=== PATIENT | female | born 1940 | race Caucasian/White ===

== ENCOUNTER 2018-05-11 12:21 | Inpatient (IN) | payer MEDICARE ==
--- NOTE | 2018-05-11 14:37 | ED ---
Shortness of Breath - HPI Summary HPI Summary: This patient is a 78 year old F presenting to [facility] with a chief complaint of sudden SOB that began this morning. Pt states she was playing tennis this morning as she does most when she had to stop because she would breath. Took pulse at this time and it was normal, she then was getting ready to go home and as she was walking out she became SOB. This episode was followed by another episode as she walked into her house. She correlates the SOB to walking. The patient rates the pain 2/10 in severity. Patient reports romero, general malaise, she also reports pain with inspiration. Patient denies CP, dizziness, cough, cold sx, and calf pain. Drove to see her daughter last weekend [address] - History of Current Complaint Chief Complaint: EDShortnessOfBreath Time Seen by Provider: 05/11/18 14:21 Hx Obtained From: Patient Onset/Duration: Still Present Timing: Constant Current Severity: Mild Dyspnea At: Exertion Alleviating Factors: Other - rest Associated Signs & Symptoms: Negative - romero, general malaise, she also reports pain with inspiration. Patient denies CP, dizziness, cough, cold sx, and calf pain. - Allergy/Home Medications Allergies/Adverse Reactions: Allergies Allergy/AdvReac Type Severity Reaction Status Date / Time bacitracin Allergy Rash Verified 05/11/18 12:28 [From Neosporin ([id number])] neomycin Allergy Rash Verified 05/11/18 12:28 [From Neosporin ([id number])] polymyxin B Allergy Rash Verified 05/11/18 12:28 [From Neosporin ([id number])] Home Medications: Home Medications NK [No Home Medications Reported] 05/11/18 [History Confirmed 05/11/18] PMH/Surg Hx/FS Hx/Imm Hx Endocrine/Hematology History: Denies: Hx Diabetes Cardiovascular History: Denies: Hx Hypertension, Hx Pacemaker/ICD History: Denies: Hx Renal Disease Sensory History: Denies: Hx Hearing Aid, Hx Hearing Problem Psychiatric History: Denies: Hx Panic Disorder, Hx of Violent Episodes Against Others - Surgical History Surgery Procedure, Year, and Place: hysterectomy - PARTIAL Infectious Disease History: No Infectious Disease History: Denies: Traveled Outside the [place] in Last 30 Days - Family History Known Family History: Negative: Diabetes, Respiratory Disease, Seizure Disorder - Social History Alcohol Use: Rare Hx Substance Use: No Substance Use Type: Reports: None Hx Tobacco Use: No Smoking Status (MU): Never Smoked Tobacco Review of Systems Constitutional: Negative - cold sx Positive: Other - general malaise Negative: Chest Pain Positive: Shortness Of Breath, Other - reports pain with inspiration. . Negative: Cough Musculoskeletal: Negative - calf pain Neurological: Negative - dizziness Positive: Headache All Other Systems Reviewed And Are Negative: Yes Physical Exam - Summary Physical Exam Summary: VITAL SIGNS: Reviewed. GENERAL: Patient is a well-developed and nourished female who is lying comfortable in the stretcher. Patient is not in any acute respiratory distress. HEAD AND FACE: No signs of trauma. No ecchymosis, hematomas or skull depressions. No sinus tenderness. EYES: PERRLA, EOMI x 2, No injected conjunctiva, no nystagmus. EARS: Hearing grossly intact. Ear canals and tympanic membranes are within normal limits. MOUTH: Oropharynx within normal limits. NECK: Supple, trachea is midline, no adenopathy, no JVD, no carotid bruit, no c- spine tenderness, neck with full ROM. CHEST: Symmetric, no tenderness at palpation LUNGS: Clear to auscultation bilaterally. No wheezing or crackles. CVS: Regular rate and rhythm, S1 and S2 present, no murmurs or gallops appreciated. ABDOMEN: Soft, non-tender. No signs of distention. No rebound no guarding, and no masses palpated. Bowel sounds are normal. EXTREMITIES: FROM in all major joints, no edema, no cyanosis or clubbing. NEURO: Alert and oriented x 3. No acute neurological deficits. Speech is normal and follows commands. SKIN: Dry and warm Triage Information Reviewed: Yes Vital Signs On Initial Exam: Initial Vitals Temp Pulse Resp BP Pulse Ox 97 F 98 20 156/109 94 05/11/18 12:21 05/11/18 12:21 05/11/18 12:21 05/11/18 12:21 05/11/18 12:21 Vital Signs Reviewed: Yes Diagnostics - Vital Signs Vital Signs Temp Pulse Resp BP Pulse Ox 05/11/18 12:21 97 F 98 20 156/109 94 - Laboratory Result Diagrams: 05/11/18 18:16 05/11/18 14:37 Lab Statement: Any lab studies that have been ordered have been reviewed, and results considered in the medical decision making process. - Radiology CXR Radiology Interpretation Completed By: Radiologist Summary of Radiographic Findings: No radiographic evidence of acute cardiopulmonary disease. ED physician has reviewed this radiology report. - EKG 1452 Cardiac Rate: NL EKG Rhythm: Sinus Rhythm - at 75 BPM Summary of EKG Findings: NO STEMI Course/Dx - Course Assessment/Plan: This patient is a 78 year old F presenting to [facility] with a chief complaint of sudden SOB that began this morning. Pt states she was playing tennis this morning as she does most when she had to stop because she would breath. Took pulse at this time and it was normal, she then was getting ready to go home and as she was walking out she became SOB. This episode was followed by another episode as she walked into her house. She correlates the SOB to walking. The patient rates the pain 2/10 in severity. Patient reports romero, general malaise, she also reports pain with inspiration. Patient denies CP, dizziness, cough, cold sx, and calf pain. Drove to see her daughter last weekend [address] Blood work without any significant abnormality except for d-dimer no 1050. Therefore I decided to order an chest CTA. CTA IMPRESSION: 1. There is widespread pulmonary emboli involving all 5 lobar branches and extending to the distal portion of the left mainstem pulmonary artery. 2. Low-attenuation 8 mm focus in the right lobe of the thyroid that can be further. characterized on a nonemergent basis with thyroid ultrasound. The patient was started with heparin drip. I discussed the case with Dr. pichardo from the hospital services who accepted the patient for admission. The patient is hemodynamically stable alert and oriented 3. - Diagnoses Differential Diagnosis/HQI/PQRI: Positive: CHF, Chest Wall Pain, COPD Exacerbation, DE, Pneumonia, Pulmonary Embolism, Pulmonary Edema Provider Diagnoses: Pulmonary embolism - Physician Notifications Discussed Care of Patient With: Gilma Bullard Time Discussed With Above Provider: 17:39 Instructed by Provider To: Admit As Inpatient - Critical Care Time Critical Care Time: 75-104 min Discharge - Sign-Out/Discharge Documenting (check all that apply): Patient Departure - dmitted - Discharge Plan Condition: Fair Disposition: ADMITTED TO [facility] Referrals: Eduardo Caballero MD [Primary Care Provider] - - Billing Disposition and Condition Condition: FAIR Disposition: Admitted to [facility] - Attestation Statements Document Initiated by Franny: Yes Documenting Scribe: Manjit Eugene Provider For Whom Franny is Documenting (Include Credential): Eran Ramos MD Scribe Attestation: I, Manjit Eugene , scribed for Eran Ramos MD on 05/11/18 at 1832. Scribe Documentation Reviewed: Yes Provider Attestation: The documentation as recorded by the Manjit calvillo accurately reflects the service I personally performed and the decisions made by me, Eran Ramos MD
[2018-05-11 14:55] LABS: ABS Basophils 0.1 10^3/ul (0-0.2); ABS Eosinophils 0.1 10^3/ul (0-0.6); ABS Monocytes 0.5 10^3/ul (0-0.8); ABS Nucleated RBC 0 10^3/ul; Eosinophil % 0.7 % (0-6); Hematocrit 41 % (35-47); Hemoglobin 14.1 g/dl (12.0-16.0); Lymphocyte % 9.2 % (25-47); Mean Corpuscular HGB Conc 35 g/dl (31-36); Mean Corpuscular Hemoglobin 30 pg (27-31); Mean Corpuscular Volume 87 fL (80-97); Mean Platelet Volume 7.4 fL (7.4-10.4); Nucleated Red Blood Cells % 0; Platelet Count 202 10^3/ul (150-450); Red Blood Count 4.71 10^6/ul (4.00-5.40); Red Cell Distribution Width 13 % (10.5-15); White Blood Count 10.7 10^3/ul (3.5-10.8)
[2018-05-11 15:24] LABS: INR 0.93 (0.77-1.02)
[2018-05-11 15:49] LABS: EGFR Non-African American 81.4 (>60)
[2018-05-11 15:53] LABS: Urine Appearance Clear; Urine Blood 1+ (Negative); Urine Color Straw; Urine Ketones Negative (Negative); Urine Protein Negative (Negative); Urine Red Blood Cell Trace(0-2/hpf) (Absent); Urine Specific Gravity 1.002 (1.010-1.030); Urine Urobilinogen Negative (Negative); Urine White Blood Cell 1+(6-10/hpf) (Absent)
[2018-05-11] MEDS ORDERED: Iohexol 350* (CONTRAST) 500 ML MDV IV ONE (16:49)
[2018-05-11] MEDS ORDERED: Heparin VIAL(*) 5000 UNITS/ML VIAL (FIVE THOUSAND) IV PRN (17:56)
[2018-05-11] MEDS ORDERED: Heparin DRIP 25,000 UNITS(*) 25,000 UNITS/500 ML BAG IV SCH ×2 (18:00→18:30)
[2018-05-11] MEDS ORDERED: Ondansetron INJ* 2 MG/ML VIAL IV PRN (18:19)
[2018-05-11] MEDS ORDERED: Acetaminophen TAB* 325 MG PO PRN (18:19)
[2018-05-11 18:25] LABS: ABS Basophils 0.1 10^3/ul (0-0.2); ABS Eosinophils 0.1 10^3/ul (0-0.6); ABS Lymphocytes 1.5 10^3/ul (1.0-4.8); ABS Monocytes 0.5 10^3/ul (0-0.8); ABS Neutrophils 5.8 10^3/ul (1.5-7.7); ABS Nucleated RBC 0 10^3/ul; Eosinophil % 1.8 % (0-6); Hematocrit 40 % (35-47); Hemoglobin 13.6 g/dl (12.0-16.0); Lymphocyte % 18.4 % (25-47); Mean Corpuscular HGB Conc 34 g/dl (31-36); Mean Corpuscular Hemoglobin 30 pg (27-31); Mean Corpuscular Volume 88 fL (80-97); Nucleated Red Blood Cells % 0.1; Platelet Count 196 10^3/ul (150-450); Red Blood Count 4.56 10^6/ul (4.00-5.40); Red Cell Distribution Width 13 % (10.5-15)
[2018-05-11 18:40] LABS: EGFR Non-African American 81.4 (>60)
--- NOTE | 2018-05-11 20:37 | HP ---
CC: Dr. Caballero * HISTORY AND PHYSICAL: DATE OF ADMISSION: 05/11/18 PRIMARY CARE PROVIDER: Dr. Caballero. MY ATTENDING PHYSICIAN WHILE IN THE HOSPITAL: Dr. Alicia Bolaños * (report dictated by Javier Goldstein NP) CHIEF COMPLAINT: Shortness of breath. HISTORY OF PRESENT ILLNESS: Ms. Zhang is a 78-year-old female patient. She has a history of hyperlipidemia, which she follows with her primary for and a history of varicose veins. She comes in to the ED today. She says that she was trying to play tennis today; she won the match, but she said she just felt really much more short of breath than usual. She took a longer time to recover. She thought something was going on. She recovered and while walking up to the parking lot, walking across the court and going up 4 or 5 steps, she got short of breath again. She got home. She was feeling okay again, but when she walked up the steps to her house, she was very short of breath again and she was notably breathing fast, so she called her primary who referred her here. She denied having any chest pain. She denied any recent fevers, chills. No recent trauma. She denies having any calf pain or leg pain or swelling. She has no recent surgery. She does admit to the fact that she recently traveled to [facility] last weekend on 05/06/18 and 05/07/18 and she did have a 5-hour trip there and 5 hours back. She said she did stop; however, she only stopped to fill up her gas. She was concerned because of the breathing. She denied any abdominal discomfort, nausea, or vomiting. She came in to the ED today, found to have a D-dimer greater than 1050 and then CTA found that she had significant pulmonary emboli in the left lung. Because of this, we were asked to evaluate for admission. PAST MEDICAL HISTORY: Significant for: 1. Hyperlipidemia. 2. Varicose veins. PAST SURGICAL HISTORY: She has had hysterectomy. MEDICATIONS: Home medications, denied. ALLERGIES TO MEDICATIONS: Include NEOSPORIN. FAMILY HISTORY: Her mother had diabetes and hyperlipidemia. Father had a history of dementia. SOCIAL HISTORY: She does not smoke, does not drink. Surrogate decision maker is her daughter, La. REVIEW OF SYSTEMS: There is no documented fever. She denied having any significant weight change. There is no double vision. She denies having any ear discharge. There is no rhinorrhea. There was no sore throat. No thyroid enlargement. She denied having any chest pain. She does admit to dyspnea on exertion. There was no orthopnea, no nocturnal dyspnea. There was no abdominal pain. No nausea, no vomiting. No dysuria, no frequency. No seizure , no loss of consciousness. No pruritus and no skin ulcerations. Review of 14 systems completed, all others negative. PHYSICAL EXAMINATION GENERAL: At this time, Ms. Zhang is a 78-year-old female patient. She is sitting in the ED stretcher. She does not appear to be in any acute distress. VITAL SIGNS: Blood pressure 110/76, pulse 78, respirations 20, O2 sat 99% on 2 L, temperature 97. HEENT: Head: Atraumatic and normocephalic. Eyes: EOMs are intact. Sclerae anicteric and not pale. Throat: Oral mucosa appears to be moist. No oropharyngeal erythema. NECK: Supple. LUNGS: Clear to auscultation bilaterally. There were no wheezes, rales, or rhonchi. HEART: Sounds S1, S2. She had a regular rate and rhythm. No murmurs, rubs, or gallops. ABDOMEN: Soft. It was flat. It was nontender. Bowel sounds were present. EXTREMITIES: Pulses were 2+ throughout. She is able to move all 4 extremities with 5/5 strength. NEUROLOGICAL: She is awake, alert, oriented x3. Tongue midline. Rejogger were equal. She had no gross focal deficits. SKIN: Grossly intact. DIAGNOSTIC STUDIES/LAB DATA: WBC of 10.7, RBC of 4.71, hemoglobin of 14.1, hematocrit 41, platelet count 202. INR 0.93, PTT of 26. Sodium is 138, potassium 4.4, chloride 103, bicarb 27, BUN 15, creatinine of 0.70, glucose 107 , lactate 0.9, calcium 9.5. Total bili 1.6, AST 19, ALT 13, alk phos 52. CK- MB 1.8. Troponin 0.00. CRP is 6.62. BNP 32. Albumin 4.3. Urine is obtained. It showed 1+ blood, 3+ leukocyte esterase, 1+ wbc, present squamous epithelial cells. CTA chest showed there is widespread pulmonary emboli involving all 5 lobar branches and extending into the distal portion on the left main stem pulmonary artery, low-attenuating 8-mm focus in the right lobe of the thyroid that can be further characterized on a nonemergent thyroid ultrasound. She had an EKG obtained today as well, which showed a normal sinus rhythm with a left anterior fascicular block, rate of 75. She had no ST elevations. There were T wave inversions in lead III only. She had a normal axis as well. No previous for comparison. Chest x-ray showed no radiographic evidence of acute cardiopulmonary disease. Old medical records were reviewed. ASSESSMENT AND PLAN: Ms. Zhang is a 78-year-old female patient coming in to the ED today with complaints of shortness of breath. On evaluation, found to have a pulmonary embolism. She will be admitted under inpatient status for: 1. Pulmonary embolism. At this point, she is not showing any clinical signs of right heart failure. She is not tachycardic and she is not hypotensive. I do not think she is a candidate for tPA. My plan will be to start her on a heparin drip. If she does deteriorate, we could always give tPA later. I am going to certainly do an echo and if she has remained stable, we could consider starting her on a DOAC. She said she was interested in Xarelto. We will continue to follow. I suspect this is a provoked deep venous thrombosis in the setting of recent travel and then we will place her on telemetry, get the echo, and continue to monitor. I will hydrate her throughout the night. 2. Hyperlipidemia. Follow with PCP. 3. History of varicosities. Follow with PCP. 4. DVT prophylaxis. She will be placed on a heparin drip. 5. Code status. Full code. 6. Fluids, electrolytes, and nutrition. She can have a regular diet. TIME SPENT: On admission was 60 minutes, greater than half the time spent face- to- face with the patient obtaining my history and physical; other half time spent going over the plan of care with the patient and implementing plan of care. I did discuss the plan of care with my attending, Dr. Bolaños; she is in agreement. JAVIER GOLDSTEIN, AMANDA [id number]/[facility] #: [id number] [facility]UR HEALTHMan
[2018-05-12 06:09] LABS: ABS Basophils 0.1 10^3/ul (0-0.2); ABS Eosinophils 0.4 10^3/ul (0-0.6); ABS Lymphocytes 1.6 10^3/ul (1.0-4.8); ABS Monocytes 0.5 10^3/ul (0-0.8); ABS Neutrophils 4.1 10^3/ul (1.5-7.7); ABS Nucleated RBC 0 10^3/ul; Eosinophil % 6.5 % (0-6); Hematocrit 37 % (35-47); Hemoglobin 12.6 g/dl (12.0-16.0); Lymphocyte % 23.1 % (25-47); Mean Corpuscular HGB Conc 34 g/dl (31-36); Mean Corpuscular Hemoglobin 30 pg (27-31); Mean Corpuscular Volume 86 fL (80-97); Mean Platelet Volume 7.4 fL (7.4-10.4); Nucleated Red Blood Cells % 0.1; Platelet Count 187 10^3/ul (150-450); Red Blood Count 4.29 10^6/ul (4.00-5.40); Red Cell Distribution Width 13 % (10.5-15); White Blood Count 6.7 10^3/ul (3.5-10.8)
[2018-05-12 06:27] LABS: EGFR Non-African American 81.4 (>60)
--- NOTE | 2018-05-12 11:05 | ECHO ---
Patient: AGA GAO [facility] Rec#: [id number] : 1940 Date: 05/12/2018 Age: 78y Height: 160 cm / 63.0 in Weight: 65.77 kg / 145.0 lbs Sex: F BSA: 1.69 Room#: [facility] Admit Date#: 05/11/2018 Type: Inpatient Referring: Javier Goldstein NP Reading: Abdirizak Haq DO Roll Inspector: Amber Thomas RDCS CC: Eduardo Caballero MD Transthoracic Echocardiogram Indication: Pulmonary Embolism BP: 1298/78 HR: 72 Rhythm: NSR Findings History: HLD Technical Comments: The study quality is fair. Completed at 1010. Left Ventricle: The left ventricular chamber size is normal. There is no left ventricular hypertrophy. There is a prominent septal knuckle. Global left ventricular wall motion and contractility are within normal limits. There is normal left ventricular systolic function. The estimated ejection fraction is 55-60%. There is no consistent Doppler evidence of clinically significant diastolic dysfunction. Left Atrium: The left atrial chamber size is normal. Right Ventricle: The right ventricular chamber size and systolic function are within normal limits. Right Atrium: The right atrial cavity size is normal. Aortic Valve: The aortic valve is trileaflet. The aortic valve leaflets are mildly thickened. There is a trace of aortic regurgitation. There is no evidence of aortic stenosis. Mitral Valve: The mitral valve leaflets are mildly thickened. There is no evidence of mitral regurgitation. There is no evidence of mitral stenosis. Tricuspid Valve: The tricuspid valve leaflets are normal. There is mild tricuspid regurgitation. No pulmonary hypertension is noted. There is no tricuspid stenosis. Pulmonic Valve: The pulmonic valve appears normal. There is trace to mild pulmonic regurgitation. There is no pulmonic stenosis. Pericardium: There is no significant pericardial effusion. Aorta: There is no dilatation of the ascending aorta. There is no dilatation of the aortic arch. The aortic root is normal in size. Pulmonary Artery: The main pulmonary artery is not well visualized. Venous: The inferior vena cava appears normal in size. There is a greater than 50% respiratory change in the inferior vena cava dimension. Conclusions The left ventricular chamber size is normal. There is a prominent septal knuckle. Global left ventricular wall motion and contractility are within normal limits. There is normal left ventricular systolic function. The estimated ejection fraction is 55-60%. The left atrial chamber size is normal. The right ventricular chamber size and systolic function are within normal limits. There is mild tricuspid regurgitation. No pulmonary hypertension is noted. None prior for comparison at time of interpretation Measurements Name Value Normal Range RVIDd (AP) 2D 3.3 cm (0.9 - 2.6) RVDdMajor (2D) 4.4 cm (2.2 - 4.4) RAd ISD 4CH 4.4 cm (3.4 - 4.9) RA (A4C)W 3.1 cm (2.9 - 4.6) IVSd (2D) 0.8 cm (0.6 - 1) LVPWd (2D) 0.6 cm (0.6 - 1) LVIDd (2D) 3.9 cm (3.6 - 5.4) LVIDs (2D) 2.5 cm - LV FS (2D) 35 % (25 - 45) Aortic Annulus 2.1 cm (1.4 - 2.6) Ao root diameter (2D) 3 cm (2.1 - 3.5) Ascending Ao 2.9 cm (2.1 - 3.4) Aortic arch 2.5 cm (1.8 - 3.4) LA dimension (AP) 2D 2.9 cm (2.3 - 3.8) LAd ISD 4CH 4.4 cm (2.9 - 5.3) LA ISD 4CH W 3 cm (2.5 - 4.5) Name Value Normal Range LA ESV BP (A/L) index 23 ml/m2 - Name Value Normal Range MV E-wave Vmax 0.6 m/sec - MV deceleration time 264 msec - MV A-wave Vmax 0.9 m/sec - MV E:A ratio 0.7 ratio - LV septal e' Vmax 0.08 m/sec - LV lateral e' Vmax 0.1 m/sec - LV E:e' septal ratio 7.5 ratio - LV E:e' lateral ratio 6 ratio - Name Value Normal Range AV Vmax 1.5 m/sec - AV VTI 29.1 cm - AV peak gradient 9 mmHg - AV mean gradient 5 mmHg - LVOT Vmax 1.3 m/sec - LVOT VTI 24.4 cm - LVOT peak gradient 7 mmHg - LVOT mean gradient 3 mmHg - SANJUANITA Vmax 0.7 m/sec - Name Value Normal Range TR Vmax 2.7 m/sec - TR peak gradient 29 mmHg - RAP 3 mmHg - RVSP 32 mmHg - IVC diameter 2 cm - Name Value Normal Range PV Vmax 0.8 m/sec - PV peak gradient 3 mmHg - NJ end-diastolic Vmax 1 m/sec - PA end-diastolic pressur4 mmHg -
--- NOTE | 2018-05-12 15:19 | PN ---
Subjective Date of Service: 05/12/18 Objective Active Medications: Acetaminophen (Tylenol Tab*) 650 mg PO Q4H PRN PRN Reason: FEVER/PAIN Last Admin: 05/11/18 18:46 Dose: 650 mg Heparin Sodium (Porcine) (Heparin Vial(*)) 0 units IV .FOR BOLUSES PRN PRN Reason: HEPARIN DRIP BOLUSES Last Admin: 05/11/18 18:49 Dose: 4,950 units Heparin Sodium/Dextrose (Heparin Drip 25,000 Units(*)) 25,000 units in 500 mls @ 0 mls/hr IV PER RATE [facility]; Protocol Stop: 05/12/18 17:00 Last Admin: 05/11/18 18:49 Dose: 24 mls/hr Ondansetron HCl (Zofran Inj*) 4 mg IV Q6H PRN PRN Reason: NAUSEA Rivaroxaban (Xarelto(*)) 15 mg PO BID [facility] Vital Signs - 8 hr 05/12/18 05/12/18 08:00 08:21 Temperature 98.6 F Pulse Rate 64 Respiratory 16 18 Rate Blood Pressure 100/58 (mmHg) O2 Sat by Pulse 97 Oximetry Oxygen Devices in Use Now: None Result Diagrams: 05/12/18 05:56 05/12/18 05:56 Microbiology and Other Data: Microbiology 05/11/18 15:30 Urine Culture - Final Urine No Growth (<1,000 CFU/mL) Assess/Plan/Problems-Billing Assessment: - Patient Problems (1) Pulmonary embolism Current Visit: Yes Status: Acute Code(s): I26.99 - OTHER PULMONARY EMBOLISM WITHOUT ACUTE COR PULMONALE SNOMED Code(s): 20828942 (2) DVT prophylaxis Current Visit: Yes Status: Acute Code(s): UDY1881 - SNOMED Code(s): 694585622 Comment: - Heparin drip (3) Full code status Current Visit: Yes Status: Acute Code(s): Z78.9 - OTHER SPECIFIED HEALTH STATUS SNOMED Code(s): 398090535
[2018-05-12 15:50] VITALS: BP 127/82
--- NOTE | 2018-05-12 16:26 | PN ---
Subjective Date of Service: 05/12/18 Interval History: Pt resting comfortably in chair. Denies shortness of breath at rest, chest pain or calf pain. Does endorse an occasional dry cough. Ambulating without difficulty. Reports some minor shortness of breath while ambulating, but states it is improved since yesterday. Denies headache, dizziness, abdominal pain, N/V/ C/D, calf pain, numbness or tingling in extremities. Objective Active Medications: Acetaminophen (Tylenol Tab*) 650 mg PO Q4H PRN PRN Reason: FEVER/PAIN Last Admin: 05/11/18 18:46 Dose: 650 mg Heparin Sodium (Porcine) (Heparin Vial(*)) 0 units IV .FOR BOLUSES PRN PRN Reason: HEPARIN DRIP BOLUSES Stop: 05/12/18 17:00 Last Admin: 05/11/18 18:49 Dose: 4,950 units Heparin Sodium/Dextrose (Heparin Drip 25,000 Units(*)) 25,000 units in 500 mls @ 0 mls/hr IV PER RATE [facility]; Protocol Stop: 05/12/18 17:00 Last Admin: 05/11/18 18:49 Dose: 24 mls/hr Ondansetron HCl (Zofran Inj*) 4 mg IV Q6H PRN PRN Reason: NAUSEA Rivaroxaban (Xarelto(*)) 15 mg PO 0900,2100 [facility] Vital Signs - 8 hr 05/12/18 05/12/18 11:32 15:36 Temperature 98.6 F 98.1 F Pulse Rate 79 72 Respiratory 18 16 Rate Blood Pressure 97/65 127/82 (mmHg) O2 Sat by Pulse 96 96 Oximetry Oxygen Devices in Use Now: None Eyes: No Scleral Icterus, PERRLA Ears/Nose/Mouth/Throat: NL Teeth, Lips, Gums, Mucous Membranes Moist Neck: NL Appearance and Movements; NL JVP, Trachea Midline Respiratory: Symmetrical Chest Expansion and Respiratory Effort, Clear to Auscultation Cardiovascular: NL Sounds; No Murmurs; No JVD, RRR, No Edema Abdominal: NL Sounds; No Tenderness; No Distention Extremities: No Edema, No Clubbing, Cyanosis, - - No calf tenderness Skin: No Rash or Ulcers, No Nodules or Sclerosis Neurological: Alert and Oriented x 3, NL Sensation, NL Muscle Strength and Tone Lines/Tubes/Other Access: Clean, Dry and Intact Peripheral IV Nutrition: Taking PO's Result Diagrams: 05/12/18 05:56 05/12/18 05:56 Microbiology and Other Data: Microbiology 05/11/18 15:30 Urine Culture - Final Urine No Growth (<1,000 CFU/mL) Assess/Plan/Problems-Billing Assessment: 78 year old female with history of recent travel presented to ED with SOB on exertion, found to have elevated d-dimer and CTA with evidence of PE. Treated with heparin gtt - Patient Problems (1) Pulmonary embolism Current Visit: Yes Status: Acute Code(s): I26.99 - OTHER PULMONARY EMBOLISM WITHOUT ACUTE COR PULMONALE SNOMED Code(s): 75219169 Comment: - On heparin drip, dosing per pharmacy - Shortness of breath has improved since admissions. Satting 96% on room air. Ambulating withouth difficulty. - Discussed risks benefits of coumadin vs NOACs. Pt would like to proceed with xaralto. Will get first dose tonight and stop heparin drip. (2) DVT prophylaxis Current Visit: Yes Status: Acute Code(s): NES4206 - SNOMED Code(s): 655180101 Comment: - Heparin drip (3) Full code status Current Visit: Yes Status: Acute Code(s): Z78.9 - OTHER SPECIFIED HEALTH STATUS SNOMED Code(s): 886145477 Status and Disposition: Stable for discharge to home Attending: Gilma Bullard
[2018-05-12] MEDS ORDERED: Rivaroxaban TAB(*) 15 MG PO SCH (18:00)
--- NOTE | 2018-05-13 15:07 | DS ---
CC: Dr. Eduardo Caballero.* DISCHARGE SUMMARY: DATE OF ADMISSION: 05/11/18 DATE OF DISCHARGE: 05/12/18 ATTENDING PHYSICIAN: Gilma Bullard MD * (dictated by Martha Traylor NP) PRIMARY CARE PROVIDER: Dr. Eduardo Caballero. PRIMARY DIAGNOSIS: Pulmonary embolism. DISCHARGE MEDICATION: Xarelto 15 mg p.o. b.i.d. STUDIES WHILE IN THE HOSPITAL: The patient underwent a chest/thorax CT which showed a wide-spread pulmonary emboli involving all 5 lobar branches and extending to the distal portion of the left mainstem pulmonary artery, as well as a low attenuation 8 mm focus in the right lobe of the thyroid that can be further characterized on an nonemergent basis with thyroid ultrasound. HOSPITAL COURSE: The patient is a 78-year-old female with a past medical history of hyperlipidemia and varicose veins who presented to the ED on with complaints of shortness of breath. She had been playing tennis that day and felt much more short of breath than usual afterward. Of note, she did have recent travel to [facility] last weekend with a 5-hour car ride there and back. She spoke to her primary care provider who referred her to the ED. Upon presentation, she was satting 99% on 2 L, hemodynamically stable, and not tachycardiac or tachypneic. She denied chest pain, abdominal discomfort, nausea or vomiting. Of note, she had no calf pain or lower extremity edema. Labs were notable for a D-dimer greater than 1050. She then underwent a CTA, which showed significant pulmonary embolism in the left lung. She was admitted to the hospitalist service for medical management of her provoked PE and started on a heparin drip. She also underwent an echocardiogram, which showed a normal EF, normal LV function, as well as normal RV function. No pulmonary hypertension was noted. On exam today, the patient reported that her shortness of breath has improved. The admitting [employer], Javier Goldstein had discussed the risks and benefits of a DOAC verus Coumadin therapy, and the patient has been considering her options. At the time of my exam, I reiterated the risks and benefits of these 2 therapies. The patient's mother had been on Coumadin therapy for many years, so she was well aware of the intensive monitoring and diet modifications involved with Coumadin and she decided that she would like to be treated with Xarelto. She will receive her 1st dose of Xarelto 15 mg this evening and will then take it b.i.d. for 21 days, at which time her dosing regimen will be altered, as directed by her PCP. She was advised that her total therapy will be at least 3 months and that she should follow up with her primary care provider for further management. As mentioned earlier in the diagnostic section, the patient did have an incidental finding of an 8 mm focus of low attenuation in the right lobe of the thyroid which can be further worked up as an outpatient. Ms. Zhang is stable for discharge home. At the time of discharge, vitals are temperature 98.1, pulse rate 72, respiratory rate 16, O2 sat 96% on room air, blood pressure 127/82. DISCHARGE PLAN: Ms. Zhang will be discharged to home. She can have activity as tolerated. She may follow a regular diet. FOLLOWUP: Ms. Zhang was instructed to follow up with her primary care provider , Dr. Cablalero in the next 4 to 7 days. She was also instructed to return to the ED or the nearest hospital if she experienced worsening shortness of breath or new chest pain. This is a summarized report of the complex medical history and hospital stay, for further details please see the entire medical record. TIME SPENT: Time spent on this discharge was approximately 45 minutes. Greater than half that time was spent [id number] with the patient discussing discharge plans and instructions. MARTHA TRAYLOR NP [id number]/[facility] #: [id number] [place]
== END 2018-05-12 19:40 | disposition home or self-care (01) | DRG 176 ==
LOC: ED 12:21 → MEDTELE 18:19
PROVIDERS: ADMIT Pediatrics; ATTEND Pediatrics
DX: I26.99 Other pulmonary embolism without acute cor pulmonale (principal); E78.5 Hyperlipidemia, unspecified; I83.90 Asymptomatic varicose veins of unspecified lower extremity; I44.4 Left anterior fascicular block; E07.89 Other specified disorders of thyroid; Z88.8 Allergy status to other drugs, medicaments and biological substances; Z83.3 Family history of diabetes mellitus; Z81.8 Family history of other mental and behavioral disorders; Z79.01 Long term (current) use of anticoagulants; Z83.49 Family history of other endocrine, nutritional and metabolic diseases; Z88.1 Allergy status to other antibiotic agents; Z90.711 Acquired absence of uterus with remaining cervical stump
CPT/HCPCS: 36415; 71046; 71275; 80048; 80053; 81003; 81015; 82553; 82565; 83605; 83880; 84484; 84520; 85025; 85379; 85610; 85730; 86140; 87086; 93005; 93306; 96365; 99284; A9270-GY; J1644; Q9967